=== PATIENT | female | born 1995 | race African-American/Black ===

== ENCOUNTER 2019-11-03 18:10 | Emergency (ER) | payer BC ==
[2019-11-03] MEDS ORDERED: NORMAL SALINE 1000 ML 1,000 ML IV ONE (18:38)
--- NOTE | 2019-11-03 18:39 | ER Document Report ---
ED Medical Screen (RME) - General Chief Complaint: Abdominal Pain Stated Complaint: ABDOMINAL PAIN Time Seen by Provider: 11/03/19 18:35 Mode of Arrival: Ambulatory Information source: Patient Notes: Patient presents complaining of lower abdominal pain for the past week. Patient states pain has worsened over the past 2 days. Patient states that pain migrates in location. Patient reports urinary frequency. No vaginal bleeding or discharge. Patient is G1, P0. I have greeted and performed a rapid initial assessment of this patient. A comprehensive ED assessment and evaluation of the patient, analysis of test results and completion of the medical decision making process will be conducted by additional ED providers. - Related Data Allergies/Adverse Reactions: No Known Allergies Allergy (Unverified 11/03/19 18:31) Physical Exam - Vital signs Vitals: Temp Pulse Resp BP Pulse Ox 99.5 F 120 H 18 120/73 98 11/03/19 18:15 11/03/19 18:15 11/03/19 18:15 11/03/19 18:15 11/03/19 18:15 - Cardiovascular Rhythm: Tachycardia Heart sounds: S1 appreciated, S2 appreciated - Abdominal Tenderness: Tender - Left lower pelvic tenderness Course - Vital Signs Vital signs: Temp Pulse Resp BP Pulse Ox 99.5 F 120 H 18 120/73 98 11/03/19 18:15 11/03/19 18:15 11/03/19 18:15 11/03/19 18:15 11/03/19 18:15
--- NOTE | 2019-11-03 19:35 | ER Document Report ---
ED General - General Chief Complaint: Abdominal Pain Stated Complaint: ABDOMINAL PAIN Time Seen by Provider: 11/03/19 18:35 Primary Care Provider: KRISTOPHER RAMIREZ MD [Primary Care Provider] - Follow up in 3-5 days Mode of Arrival: Ambulatory Information source: Patient Notes: 24-year-old female with no past medical history presents to the emergency department with reports that she has had some generalized lower abdominal pain for the past week. She reports the pain has increased for the past 2 days. She also complains of urinary frequency, denies pain with void. She denies abnormal vaginal discharge, denies vaginal bleeding. She reports she went to [facility] to be evaluated today. Patient reports they checked her urine and she reports they told her that she had an ectopic . Patient reports she was told to go to the emergency department. Patient had her Nexplanon removed in July. Last menstrual period was October 04. She reports fever started today. She took Tylenol approximately 2 hours ago. Denies nausea vomiting diarrhea. Patient looks good nontoxic looking smiles easily. She reports she has been eating and drinking as normal. TRAVEL OUTSIDE OF THE [place] IN LAST 30 DAYS: No - HPI Onset: Last week Onset/Duration: Worse Associated symptoms: Other - Urinary frequency Exacerbated by: Denies Relieved by: Denies Similar symptoms previously: Yes Recently seen / treated by doctor: Yes - Related Data Allergies/Adverse Reactions: No Known Allergies Allergy (Unverified 11/03/19 18:31) Past Medical History - General Information source: Patient Last Menstrual Period: October 04, 2019 - Social History Smoking Status: Unknown if Ever Smoked Cigarette use (# per day): No Frequency of alcohol use: None Drug Abuse: None Occupation: [employer] Lives with: Family Family History: None Patient has suicidal ideation: No Patient has homicidal ideation: No - Medical History Medical History: Negative Surgical Hx: Negative Review of Systems - Review of Systems Notes: Review HPI for review of systems., All other systems negative Physical Exam - Vital signs Vitals: Temp Pulse Resp BP Pulse Ox 99.5 F 120 H 18 120/73 98 11/03/19 18:15 11/03/19 18:15 11/03/19 18:15 11/03/19 18:15 11/03/19 18:15 - Notes Notes: PHYSICAL EXAMINATION: GENERAL: Well-appearing and in no acute distress HEAD: Atraumatic, normocephalic. EYES: Pupils equal round and reactive to light, extraocular movements intact, sclera anicteric, conjunctiva are normal. ENT: nares patent, oropharynx clear without exudates. Moist mucous membranes. NECK: Normal range of motion, supple without lymphadenopathy LUNGS: CTAB and equal. No wheezes rales or rhonchi. HEART: Regular rate and rhythm without murmurs ABDOMEN: Soft, midline low abdominal tenderness to palpation, reports it feels like she needs to urinate. No guarding, no rebound EXTREMITIES: Normal range of motion NEUROLOGICAL: Cranial nerves grossly intact. Normal sensory/motor exams. PSYCH: Normal mood, normal affect. SKIN: Warm, Dry, normal turgor, no rashes or lesions noted Course - Re-evaluation Re-evalutation: 11/03/19 19:35 24-year-old female presents with lower abdominal pain complaints of urinary frequency and just found out she is . Labs flu test as well as transvaginal ultrasound ordered. Patient instructed on plan of care, verbalized understanding and agrees with plan. 11/03/19 21:28 UA unremarkable labs unremarkable. Ultrasound did not visualize an IUP. Endometrium was visualized at 15 mm and complex corpus luteal cyst noted which both could indicate a very early . Patient, her parents and the baby's father were instructed on all results. They are instructed that no IUP was visible at this time. They were instructed that could be due to an early . They were also instructed that we worry about ectopics at this point. They were instructed on the importance of follow-up November 05 for repeat hCG and the need for repeat ultrasound. Patient was cautioned that if she had severe abdominal pain vaginal bleeding any concerns that she is to return immediately to the emergency department. She verbalized understanding to all instructions. Patient denies pain at this time. She reports she feels much better. Laboratory 11/03/19 11/03/19 11/03/19 19:24 19:24 19:24 WBC 5.3 RBC 4.10 Hgb 12.5 Hct 36.6 MCV 89 MCH 30.6 MCHC 34.2 RDW 13.3 Plt Count 203 Lymph % (Auto) Not Reportable [place] % (Auto) Not Reportable Eos % (Auto) Not Reportable Baso % (Auto) Not Reportable Absolute Neuts (auto) Not Reportable Absolute Lymphs (auto) Not Reportable Absolute Monos (auto) Not Reportable Absolute Eos (auto) Not Reportable Absolute Basos (auto) Not Reportable Total Counted 100 Seg Neutrophils % Not Reportable Seg Neuts % (Manual) 82 H Lymphocytes % (Manual) 7 L Monocytes % (Manual) 10 Eosinophils % (Manual) 0 Basophils % (Manual) 1 Abs Neuts (Manual) 4.3 Abs Lymphs (Manual) 0.4 L Abs Monocytes (Manual) 0.5 Absolute Eos (Manual) 0.0 Abs Basophils (Manual) 0.1 Platelet Comment ADEQUATE RBC Morph Comment NORMO-CYTIC/CHROMIC Sodium 136.6 L Potassium 3.6 Chloride 105 Carbon Dioxide 23 Anion Gap 9 BUN 8 Creatinine 0.64 Est GFR ( Amer) > 60 Est GFR (MDRD) Non-Af > 60 Glucose 114 H Calcium 9.3 Total Bilirubin 0.1 L Direct Bilirubin 0.0 Neonat Total Bilirubin Not Reportable Neonat Direct Bilirubin Not Reportable Neonat Indirect Bili Not Reportable AST 27 ALT 19 Alkaline Phosphatase 53 Total Protein 7.2 Albumin 4.1 Beta HCG, Quant 1002.20 H Total Beta HCG POSITIVE Urine Color Urine Appearance Urine pH Ur Specific [place] Urine Protein Urine Glucose (UA) Urine Ketones Urine Blood Urine Nitrite Urine Bilirubin Urine Urobilinogen Ur Leukocyte Esterase Urine WBC (Auto) Urine RBC (Auto) Squamous Epi Cells Auto Urine Mucus (Auto) Urine Ascorbic Acid Influenza A (Rapid) NEGATIVE Influenza B (Rapid) NEGATIVE 11/03/19 19:24 WBC RBC Hgb Hct MCV MCH MCHC RDW Plt Count Lymph % (Auto) [place] % (Auto) Eos % (Auto) Baso % (Auto) Absolute Neuts (auto) Absolute Lymphs (auto) Absolute Monos (auto) Absolute Eos (auto) Absolute Basos (auto) Total Counted Seg Neutrophils % Seg Neuts % (Manual) Lymphocytes % (Manual) Monocytes % (Manual) Eosinophils % (Manual) Basophils % (Manual) Abs Neuts (Manual) Abs Lymphs (Manual) Abs Monocytes (Manual) Absolute Eos (Manual) Abs Basophils (Manual) Platelet Comment RBC Morph Comment Sodium Potassium Chloride Carbon Dioxide Anion Gap BUN Creatinine Est GFR ( Amer) Est GFR (MDRD) Non-Af Glucose Calcium Total Bilirubin Direct Bilirubin Neonat Total Bilirubin Neonat Direct Bilirubin Neonat Indirect Bili AST ALT Alkaline Phosphatase Total Protein Albumin Beta HCG, Quant Total Beta HCG Urine Color YELLOW Urine Appearance CLOUDY Urine pH 5.0 Ur Specific [place] 1.035 Urine Protein 30 H Urine Glucose (UA) 50 H Urine Ketones NEGATIVE Urine Blood NEGATIVE Urine Nitrite NEGATIVE Urine Bilirubin NEGATIVE Urine Urobilinogen 2.0 H Ur Leukocyte Esterase NEGATIVE Urine WBC (Auto) 4 Urine RBC (Auto) 1 Squamous Epi Cells Auto 26 Urine Mucus (Auto) FEW Urine Ascorbic Acid 40 H Influenza A (Rapid) Influenza B (Rapid) Obstetrics Ultrasound 11/03/19 18:38 IMPRESSION: 1. No intrauterine is identified. The endometrium is thickened at 15 mm. 2. Solid mass in the right ovary which may represent a complex corpus luteal cyst. 3. No free fluid. 11/03/19 22:29 STD cultures negative - Vital Signs Vital signs: Temp Pulse Resp BP Pulse Ox 99.6 F 95 16 119/81 100 11/03/19 21:57 11/03/19 21:57 11/03/19 21:57 11/03/19 21:57 11/03/19 21:57 - Laboratory Result Diagrams: 11/03/19 19:24 11/03/19 19:24 Laboratory results interpreted by me: 11/03/19 11/03/19 11/03/19 19:24 19:24 19:24 Seg Neuts % (Manual) 82 H Lymphocytes % (Manual) 7 L Abs Lymphs (Manual) 0.4 L Sodium 136.6 L Glucose 114 H Total Bilirubin 0.1 L Beta HCG, Quant 1002.20 H Urine Protein 30 H Urine Glucose (UA) 50 H Urine Urobilinogen 2.0 H Urine Ascorbic Acid 40 H - Diagnostic Test Radiology reviewed: Reports reviewed - EKG Interpretation by Ar EKG shows normal: Sinus rhythm Rate: Tachycardia Additional EKG results interpreted by me: 11/03/19 20:[address] elevation no T wave inversion Discharge - Discharge Clinical Impression: Abdominal pain Qualifiers: Abdominal location: lower abdomen, unspecified Qualified Code(s): R10.30 - Lower abdominal pain, unspecified Condition: Stable Disposition: HOME, SELF-CARE Instructions: Abdominal Pain ([facility]), Ectopic Precaution ([facility]), Ob-Facilities Administrator Doctors, [facility], ([facility]) Additional Instructions: *You have been evaluated for abdominal pain, *Your ultrasound was inconclusive. An intrauterine was not visible. This may be because your is in the very early stages. We also worry about an ectopic . You will need to have a repeat ultrasound. *Your hCG was 1002.20. Please follow-up for an outpatient lab test in 2 days on November 05. You may contact Pat at [phone] MondayNovember 05 from [phone] (at least two hours after your test) *Your STD cultures are still pending. You may be contacted should you need treatment. *Monitor your temperature take Tylenol as indicated. Push fluids. *Follow up with a primary care provider/APPLICATION DESIGNER or the health department this week *Return to ED for worsening condition, changes, needs, severe abdominal pain, vaginal bleeding Forms: Follow-Up Laboratory Testing, Return to Work Referrals: KRISTOPHER RAMIREZ MD [Primary Care Provider] - Follow up in 3-5 days
[2019-11-03 19:55] LABS: HEMATOCRIT 36.6 % (36.0-47.0); HEMOGLOBIN 12.5 g/dL (12.0-15.5); MEAN CORPUSCULAR HEMOGLOBIN 30.6 pg (27.0-33.4); MEAN CORPUSCULAR HGB CONC 34.2 g/dL (32.0-36.0); MEAN CORPUSCULAR VOLUME 89 fl (80-97); PLATELET COUNT 203 10^3/uL (150-450); RED CELL DISTRIBUTION WIDTH 13.3 % (11.5-14.0); WHITE BLOOD COUNT 5.3 10^3/uL (4.0-10.5)
[2019-11-03 19:58] LABS: APPEARANCE,URINE CLOUDY; BILIRUBIN,URINE NEGATIVE (NEGATIVE); COLOR,URINE YELLOW; GLUCOSE, URINE 50 mg/dL (NEGATIVE); KETONES,URINE NEGATIVE (NEGATIVE); LEUKOCYTE ESTERASE,URINE NEGATIVE (NEGATIVE); NITRITE,URINE NEGATIVE (NEGATIVE); PROTEIN,URINE 30 mg/dL (NEGATIVE); URINE SPECIFIC GRAVITY 1.035
[2019-11-03 20:07] LABS: ALBUMIN 4.1 g/dL (3.5-5.0); ALKALINE PHOSPHATASE 53 U/L (38-126); ANION GAP 9 (5-19); ASPARTATE AMINO TRANSFERASE 27 U/L (14-36); BILIRUBIN,TOTAL 0.1 mg/dL (0.2-1.3); BLOOD UREA NITROGEN 8 mg/dL (7-20); CALCIUM 9.3 mg/dL (8.4-10.2); CARBON DIOXIDE 23 mmol/L (22-30); CHLORIDE 105 mmol/L (98-107); GLUCOSE 114 mg/dL (75-110); POTASSIUM 3.6 mmol/L (3.6-5.0); TOTAL PROTEIN 7.2 g/dL (6.3-8.2)
[2019-11-03 20:12] LABS: A TYPE INFLUENZA AG NEGATIVE (NEGATIVE); B INFLUENZA AG NEGATIVE (NEGATIVE)
[2019-11-03 20:27] LABS: ABSOLUTE LYMPHOCYTES# (MANUAL) 0.4 10^3/uL (0.5-4.7); ABSOLUTE MONOCYTES # (MANUAL) 0.5 10^3/uL (0.1-1.4); BASOPHILS % (MANUAL) 1 % (0-2); EOSINOPHILS % (MANUAL) 0 % (0-6); LYMPHOCYTES % (MANUAL) 7 % (13-45); MONOCYTES % (MANUAL) 10 % (3-13); SEGMENTED NEUTROPHILS % (MAN) 82 % (42-78); TOTAL CELLS COUNTED 100
[2019-11-03 20:28] LABS: PLATELET COMMENT ADEQUATE; RBC MORPHOLOGY COMMENT NORMO-CYTIC/CHROMIC
--- NOTE | 2019-11-03 20:37 | EKG REPORT ---
SEVERITY:- BORDERLINE ECG - SINUS TACHYCARDIA BORDERLINE T WAVE ABNORMALITIES : Confirmed by: Araceli Bryant MD 03-Nov-2019 20:36:09
--- NOTE | 2019-11-03 21:22 | RADIOLOGY REPORT (SQ) ---
EXAM: Transvaginal pelvic ultrasound CLINICAL INDICATION: Abdominal pain COMPARISON: None. TECHNIQUE: First trimester OB ultrasound was performed. FINDINGS: Uterus:The uterus measures 9.9 x 5.5 x 6.9 cm. The cervix is closed and measures 3.5 cm. The endometrium is borderline thickened measuring 1.5 cm. No gestational sac. No fluid in the endometrium. Ovaries and adnexa: Right ovary measures 3.9 x 2.2 x 1.5 cm and contains a complex hyperechoic, solid area measuring 2.1 x 2.0 x 1.4 cm. Normal blood flow is seen in the ovary. The left ovary measures 3.0 x 1.4 x 1.3 cm and is morphologically normal. No free fluid. Normal ovarian blood flow is noted bilaterally. IMPRESSION: 1. No intrauterine is identified. The endometrium is thickened at 15 mm. 2. Solid mass in the right ovary which may represent a complex corpus luteal cyst. 3. No free fluid.
[2019-11-03 21:39] LABS: CHLAM PCR NOT DETECTED (NOT DETECT)
[2019-11-03 21:58] VITALS: BP 119/81
== END 2019-11-03 21:57 | disposition home or self-care (01) ==
LOC: ER 18:10
DX: O26.891 Other specified pregnancy related conditions, first trimester (principal); R10.30 Lower abdominal pain, unspecified; R10.819 Abdominal tenderness, unspecified site; R35.0 Frequency of micturition; Z3A.01 Less than 8 weeks gestation of pregnancy
CPT/HCPCS: 93005; 36415; 84702; 85025; 80053; 81001; 87491; 87591; 87804; 76817; 93010; J7030; 99284

== ENCOUNTER → 2019-11-05 | Outpatient (CLI) | payer BC | LOC: OD 10:28 | PROVIDERS: ATTEND Physician Assistant Medical | DX: O26.899 Other specified pregnancy related conditions, unspecified trimester (principal); R10.9 Unspecified abdominal pain | CPT/HCPCS: 36415; 84702 ==

== ENCOUNTER 2019-11-06 18:23 | Emergency (ER) | payer BC ==
[2019-11-06 18:27] VITALS: BP 127/74
--- NOTE | 2019-11-06 18:51 | ER Document Report ---
ED Medical Screen (RME) - General Stated Complaint: VAGINAL BLEEDING/CRAMPING Time Seen by Provider: 11/06/19 18:47 Primary Care Provider: RAD NEVES PA-C [Primary Care Provider] - Follow up as needed Mode of Arrival: Ambulatory Information source: Patient Notes: 24-year-old female G1, P0 presents the emergency department with last menstrual period October 04. She was evaluated here November 03 for abdominal pain +Quant noted. Patient was sent for an ultrasound and no IUP was noted. Patient was instructed to follow-up for repeat hCG on November 05. Which she did hCG level going down. Patient reports she started vaginal bleeding today. Denies abdominal pain. I have greeted and performed a rapid initial assessment of this patient. A comprehensive ED assessment and evaluation of the patient, analysis of test results and completion of the medical decision making process will be conducted by additional ED providers. TRAVEL OUTSIDE OF THE [place] IN LAST 30 DAYS: No - Related Data Allergies/Adverse Reactions: No Known Allergies Allergy (Unverified 11/03/19 18:31) Physical Exam - Vital signs Vitals: Temp Pulse Resp BP Pulse Ox 98.8 F 95 20 127/74 H 100 11/06/19 18:24 11/06/19 18:24 11/06/19 18:24 11/06/19 18:24 11/06/19 18:24 Course - Vital Signs Vital signs: Temp Pulse Resp BP Pulse Ox 98.8 F 95 20 127/74 H 100 11/06/19 18:24 11/06/19 18:24 11/06/19 18:24 11/06/19 18:24 11/06/19 18:24 Doctor's Discharge - Discharge Referrals: RAD NEVES PA-C [Primary Care Provider] - Follow up as needed
[2019-11-06 21:44] LABS: ABSOLUTE MONOCYTES (AUTO) 0.2 10^3/uL (0.1-1.4); ABSOLUTE NEUT (AUTO) 1.1 10^3/uL (1.7-8.2); BASOPHILS % (AUTO) 0.7 % (0-2); EOSINOPHILS % (AUTO) 0.7 % (0-6); HEMATOCRIT 39.2 % (36.0-47.0); HEMOGLOBIN 13.3 g/dL (12.0-15.5); MEAN CORPUSCULAR HEMOGLOBIN 30.2 pg (27.0-33.4); MEAN CORPUSCULAR VOLUME 89 fl (80-97); MONOCYTES % (AUTO) 9.7 % (3-13); PLATELET COUNT 155 10^3/uL (150-450); RED BLOOD COUNT 4.41 10^6/uL (3.72-5.28); RED CELL DISTRIBUTION WIDTH 13.2 % (11.5-14.0); SEGMENTED NEUTROPHILS % (AUTO) 46.9 % (42-78); TOTAL CELLS COUNTED % (AUTO) 100 %; WHITE BLOOD COUNT 2.3 10^3/uL (4.0-10.5)
[2019-11-06 21:55] LABS: ALBUMIN 4.3 g/dL (3.5-5.0); ALKALINE PHOSPHATASE 58 U/L (38-126); ANION GAP 9 (5-19); ASPARTATE AMINO TRANSFERASE 88 U/L (14-36); BILIRUBIN,DIRECT 0.2 mg/dL (0.0-0.4); BILIRUBIN,TOTAL 0.3 mg/dL (0.2-1.3); BLOOD UREA NITROGEN 4 mg/dL (7-20); CALCIUM 8.8 mg/dL (8.4-10.2); CARBON DIOXIDE 28 mmol/L (22-30); CHLORIDE 104 mmol/L (98-107); GLUCOSE 101 mg/dL (75-110); POTASSIUM 3.7 mmol/L (3.6-5.0); TOTAL PROTEIN 7.7 g/dL (6.3-8.2)
== END 2019-11-07 01:13 | disposition left against medical advice (07) ==
LOC: ER 18:23
DX: N93.8 Other specified abnormal uterine and vaginal bleeding (principal)
CPT/HCPCS: 36415; 80053; 84702; 85025; 86900; 86901; 99281